=== PATIENT | female | born 1970 | race African-American/Black ===

== ENCOUNTER 2023-02-20 17:56 | Emergency (ER) | payer OTHER, MEDICARE, SELFPAY ==
--- NOTE | ~2023-02-20 | XR_ITS ---
EXAMINATION: XR sacrum coccyx min 2V DATE: 02/20/2023 19:50 INDICATION: Back pain. TECHNIQUE: 3 views of the sacrum and coccyx were obtained. COMPARISON: None. FINDINGS: Bone alignment is normal. No fracture. There are changes of anterior and posterior fusion p rocedures at L5-S1. There is mild lumbar spondylosis. There is moderate osteoarthritis of the sacroco ccygeal joints. IMPRESSION: 1. Anterior and posterior fusion procedures at L5-S1. 2. Moderate osteoarthritis of the sacrococcygeal joints. Reviewed, dictated and finalized at location E.
--- NOTE | ~2023-02-20 | XR_ITS ---
EXAMINATION: XR lumbar spine min 4V DATE: 02/20/2023 19:50 INDICATION: Back pain. TECHNIQUE: 5 views of lumbar spine were obtained. COMPARISON: None. FINDINGS: Bone alignment is normal. Vertebral body heights are normal. There is mildly decreased disc height at L3-L4 and L4-L5. There are endplate osteophytes at most levels. There are changes of anter ior and posterior fusion procedures at L5-S1. There is moderate to severe facet joint osteoarthritis in lower lumbar spine. IMPRESSION: 1. Mild lumbar spondylosis. 2. Anterior and posterior fusion procedures at L5-S1. Reviewed, dictated and finalized at location E.
[2023-02-20 18:53] VITALS: BP 123/70; PULSE 83; RESP 16; TEMP 36.4; O2SAT 100
[2023-02-20 19:18] LABS: Appearance Urine Clear (Clear); Bilirubin Urine Negative (Negative); Blood Urine Negative (Negative); Color Urine Yellow (Yellow); Glucose Urine UA Negative (Negative); Ketones Urine Negative (Negative); Leukocyte Esterase Ur Negative LEU/UL (Negative); Nitrate Urine Negative (Negative); Protein Urine Negative (Negative); Specific Grav Ur 1.016 (1.001-1.035); pH Urine 5.5 (5.0-9.0)
[2023-02-20 19:24] LABS: Add Urine Microscopic? NO
[2023-02-20] MEDS: HYDROcodone/acetaminophen (*CRX) 5-325 MG TABLET 1 TAB PO (20:44)
--- NOTE | 2023-02-20 20:53 | ED.BACK ---
HPI - Back Pain/Injury General Chief Complaint: Back Pain/Injury <Jazmine Barry APRN - Last Filed: 02/21/23 03:18> Stated Complaint: lower spine pain <Jazmine Barry APRN - Last Filed: 02/21/23 03:18> Time Seen by Provider: 02/20/23 19:13 <Jazmine Barry APRN - Last Filed: 02/21/23 03:18> History of Present Illness HPI Narrative: 52-year-old female with history of previous back surgeries presents today with complaints of right buttock pain. Pain does not radiate. There is no numbness to the leg. Patient has tried Tylenol, ibuprofen, Flexeril over the last couple days without improvement. She did call her neuro surgeon then instructed her to come to the ER for evaluation. She denies any urinary incontinence although does state she has troubles getting to the bathroom fast enough due to slow mobility from pain, denies bowel incontinence, denies saddle paresthesia, leg weakness, IV drug usage. <Jazmine Barry APRN - Last Filed: 02/21/23 03:18> MD elicited complaint: back pain <Jazmine Barry APRN - Last Filed: 02/21/23 03:18> Pertinent past history: prior back pain and back surgery <Jazmine Barry APRN - Last Filed: 02/21/23 03:18> Related Data Allergies/Adverse Reactions: Allergies Allergy/AdvReac Type Severity Reaction Status Date / Time No Known Allergies Allergy Verified 02/20/23 20:43 <Jazmine Barry APRN - Last Filed: 02/21/23 03:18> Review of Systems Review of Systems: All systems reviewed & are unremarkable except as noted in HPI and below <Jazmine Barry APRN - Last Filed: 02/21/23 03:18> ENT: Reports as per HPI <Jazmine Barry APRN - Last Filed: 02/21/23 03:18> Cardiovascular: Cardiovascular: Reports as per HPI <Jazmine Barry APRN - Last Filed: 02/21/23 03:18> Respiratory: Respiratory: Reports as per HPI <Jazmine Barry APRN - Last Filed: 02/21/23 03:18> Gastrointestinal: Gastrointestinal: Reports as per HPI <Jazmine Barry APRN - Last Filed: 02/21/23 03:18> Musculoskeletal: Musculoskeletal: Reports as per HPI <Jazmine Barry APRN - Last Filed: 02/21/23 03:18> Integumentary/Breasts: Skin/Breast: Reports as per HPI <Jazmine Barry APRN - Last Filed: 02/21/23 03:18> Neurologic: Reports as per HPI <Jazmine Barry APRN - Last Filed: 02/21/23 03:18> Psychiatric: Psychiatric: Reports as per HPI <Jazmine Barry APRN - Last Filed: 02/21/23 03:18> PMFSH Surgical History Surgical History: Surgical History Previous back surgery <Jazmine Barry APRN - Last Filed: 02/21/23 03:18> Exam Narrative: GENERAL: Well-appearing, well-nourished, and in no acute distress. HEAD: Normocephalic, atraumatic. EYES: PERRLA and EOMI. NECK: Supple. No adenopathy or masses. CHEST: Clear to auscultation. No respiratory distress. No wheezes rales or rhonchi HEART: Regular rate and rhythm. No murmur heard. Normal peripheral pulses. EXTREMITIES: Normal range of motion. No edema. Right sciatica notch tenderness. SKIN: Warm, dry, no rash. NEURO: No focal deficits. Alert and oriented x3. Bilateral lower extremity strength 5 out of 5. Sensation intact bilateral feet. Tenderness to paraspinal area lumbar sacral spine. Tenderness to the right sacral notch. <Jazmine Barry APRN - Last Filed: 02/21/23 03:18> Course [employer] Physician Supervision I agree with midlevel documentation; I performed the medical decision making component of this evaluation. <Sana August MD - Last Filed: 02/21/23 03:19> Vital Signs Vital signs: Vital Signs Temperature 97.5 F L 02/20/23 18:53 Pulse Rate 83 02/20/23 18:53 Respiratory Rate 16 02/20/23 18:53 Blood Pressure 123/70 02/20/23 18:53 Pulse Oximetry 100 07/13/23 18:53 Oxygen Delivery Room Air 02/20/23 18:53 Temperature 97.5 F L 02/20/23 18:53 Pulse Rate 83 02/20/23 18:53 Respiratory Rate 16 02/20/23 18:53 Blood Pr
== END 2023-02-20 21:09 | disposition home or self-care (01) ==
PROVIDERS: Emergency Medicine; Emergency Provider Nurse Practitioner Family; PCP Nurse Practitioner Family
DX: M54.41 Lumbago with sciatica, right side (principal)
CPT/HCPCS: 72110; 72220; 81003; 99283; A9270